=== PATIENT | female | born 1950 | race Caucasian/White ===

== ENCOUNTER 2018-12-02 09:44 | Emergency (ER) | payer MEDICARE, OTHER ==
[~2018-12-02] VITALS: Ht 175.3 cm; Wt 72.0 kg
[~2018-12-02 09:44] MED LIST: ASPI-817 PO; CARV25TA79 PO; CHLO25TA2 PO; CLOP75TA27 PO; FURO-110 PO; GLIP5TAB13 PO; HYDR-3670 PO; LISI-471 PO; METO-448 PO; PANT40TA3 PO; ROSU20TA PO; WARF2.5T PO; WARF2TAB PO
[2018-12-02 09:51] VITALS: BP 98/53; PULSE 66; RESP 20; Ht 175.3 cm; Wt 72.0 kg
--- NOTE | 2018-12-02 11:48 | ERD ---
ER Documentation Chief Complaint Chief Complaint Complains of a cough x 3 days HPI 68-year-old female, with history of hypertension and coronary artery disease, currently on Coumadin, presents the emergency department, complaining of productive cough for 3 days, associated with subjective fever chest congestion and general malaise. The patient denies chest pain, no shortness of breath, no palpitations, no leg edema. ROS All systems reviewed and are negative except as per history of present illness. Medications Home Meds Active Scripts Hydrocodone/Acetaminophen ([place] 5-325 Tablet) 1 Each Tablet, 1 TAB PO QHS PRN for PAIN, #7 TAB Prov:KAYA YUEN MD 12/02/18 Inhaler, Assist Devices (Compact Space Chamber Plus) 1 Each Spacer, EACH MC Q4H WHILE AWAKE PRN for COUGH, #1 Prov:KAYA YUEN MD 12/02/18 Albuterol Sulfate* (Proair HFA*) 8.5 Gm Hfa.aer.ad, 2 PUFF INH Q4 PRN for COUGH, #1 INHALER Prov:KAYA YUEN MD 12/02/18 Amoxicillin* (Amoxicillin*) 500 Mg Cap, 500 MG PO TID for 7 Days, CAP Prov:KAYA YUEN MD 12/02/18 Pantoprazole* (Protonix*) 40 Mg Tablet.dr, 40 MG PO DAILY for 30 Days, #20 TAB Prov:JARVIS DUMAS 07/28/16 Metoprolol Tartrate* (Lopressor*) 25 Mg Tab, 12.5 MG PO BID for 30 Days, TAB Prov:JARVIS DUMAS 07/28/16 Hydralazine Hcl* (Hydralazine Hcl*) 10 Mg Tablet, 10 MG PO Q8 for 30 Days, TAB Prov:JARVIS DUMAS 07/28/16 Reported Medications Glipizide* (Glipizide*) 5 Mg Tablet, 5 MG PO BID, TAB 07/26/16 Warfarin Sodium* (Coumadin*) 2.5 Mg Tablet, 2.5 MG PO SUN TUE UR SAT, TAB 07/26/16 Warfarin Sodium* (Coumadin*) 2 Mg Tablet, 2 MG PO MONWEDFRI, TAB 07/26/16 Furosemide* (Lasix*) 20 Mg Tablet, 20 MG PO BID, TAB 07/26/16 Rosuvastatin Calcium* (Crestor*) 20 Mg Tablet, 20 MG PO QHS, #30 TAB 07/26/16 Chlorthalidone* (Chlorthalidone*) 25 Mg Tablet, 25 MG PO DAILY, TAB 07/26/16 Pantoprazole* (Protonix*) 40 Mg Tablet.dr, 40 MG PO DAILY, TAB 07/26/16 Carvedilol* (Carvedilol*) 25 Mg Tablet, 25 MG PO BID, #60 TAB 07/26/16 Lisinopril* (Lisinopril*) 20 Mg Tablet, 20 MG PO DAILY, TAB 01/13/15 Clopidogrel Bisulfate (Clopidogrel) 75 Mg Tablet, 75 MG PO DAILY, TAB 01/13/15 Aspirin* (Aspirin* EC) 81 Mg Tablet.dr, 81 MG PO DAILY, TAB 01/13/15 Allergies Allergies: Coded Allergies: No Known Drug Allergies (Verified Allergy, Mild, 07/26/16) PMhx/Soc History of Surgery: Yes (cataract surgery) Anesthesia Reaction: No Hx Neurological Disorder: No Hx Respiratory Disorders: No Hx Cardiac Disorders: Yes (stent placement, DVT) Hx Psychiatric Problems: No Hx Miscellaneous Medical Probl: No Hx Alcohol Use: No Hx Substance Use: No Hx Tobacco Use: Yes Smoking Status: Never smoker FmHx Family History: No diabetes, No coronary disease Physical Exam Vitals Vital Signs Date Temp Pulse Resp B/P (MAP) Pulse Ox O2 O2 Flow FiO2 Time Delivery Rate 12/02/18 99.1 66 20 98/53 (68) 98 09:51 Physical Exam Const: No acute distress Head: Atraumatic Eyes: Normal Conjunctiva ENT: Normal External Ears, Nose and Mouth. Neck: Full range of motion. No meningismus. Resp: Rhonchi to auscultation bilaterally Cardio: Regular rate and rhythm, no murmurs Abd: Soft, non tender, non distended. Normal bowel sounds Skin: No petechiae or rashes Back: No midline or flank tenderness Ext: No cyanosis, or edema Neur: Awake and alert Psych: Normal Mood and Affect Procedures/MDM Differential diagnosis include but not limited to: Respiratory infection bacterial/viral/fungal. Asthma, pneumonitis, allergies, GERD. Less likely foreign body aspiration, cardiac related, aspiration pneumonia, malignancy. Physical examination and clinical presentation consistent most likely with viral syndrome. During the ED course the patient remained stable, no new complaints. Clinical impression discussed with the patient who agrees with management. The patient is stable to be treated outpatient and will be discharged home. Antibiotics not indicated at this time. The patient is requesting a prescription for antibiotics, a prescription will be given with instructions to continue symptomatic and conservative management for 3 days, trying to avoid use of unnecessary antibiotics due to the possible side effects and complications. if there is no improvement of the symptoms in 72 hours, okay to start antibiotics. some side effects of prescribed medications (headache, rash, nausea, vomiting, diarrhea, drowsiness, hypertension, interactions with other medications) were reviewed. The patient was instructed to follow up with the primary care provider in the next 48h. If symptoms persist, worsen or new symptoms develop, then patient should return to the ED immediately. Disclaimer: Inadvertent spelling and grammatical errors are likely due to EHR/dictation software use and do not reflect on the overall quality of patient care. Also, please note that the electronic time recorded on this note does not necessarily reflect the actual time of the patient encounter. Departure Diagnosis: Primary Impression: Cough Additional Impression: Bronchitis Condition: Stable Additional Instructions: Thank you very much for allowing us to participate in your care. Your health and safety is our top priority at [facility]. Call your primary care doctor TOMORROW for an appointment during the next 2-4 days and bring all the information and medications prescribed. Have prescriptions filled and follow precisely the directions on the label. If the symptoms get worse and your provider is unavailable, return to the Emergency Department immediately. KAYA YUEN MD Dec 02, 2018 11:48
[2018-12-02] MEDS ORDERED: AMOX500C2 PO (12:02)
[2018-12-02] MEDS ORDERED: INHA1SPA95 MC (12:02)
[2018-12-02] MEDS ORDERED: ALBU8.5H8 INH (12:02)
[2018-12-02] MEDS ORDERED: HYDR-4011 PO (12:02)
== END 2018-12-02 12:33 | disposition home or self-care (01) ==
LOC: FTE 09:44
DX: J40 Bronchitis, not specified as acute or chronic (principal); I10 Essential (primary) hypertension; I25.10 Atherosclerotic heart disease of native coronary artery without angina pectoris; Z79.82 Long term (current) use of aspirin; Z79.01 Long term (current) use of anticoagulants; Z98.61 Coronary angioplasty status; Z79.84 Long term (current) use of oral hypoglycemic drugs; Z87.891 Personal history of nicotine dependence
CPT/HCPCS: 99283

== ENCOUNTER 2019-05-10 17:59 | Emergency (ER) | payer MEDICARE, OTHER ==
[~2019-05-10] VITALS: Ht 160 cm; Wt 72.9 kg
[~2019-05-10 17:59] MED LIST changes: +ALBU8.5H8 INH; +AMOX500C2 PO; +CRES20 PO; +HYDR-4011 PO; +INHA1SPA95 MC; -ROSU20TA PO
[2019-05-10 18:03] VITALS: Ht 160 cm; Wt 72.9 kg
[2019-05-10 20:46] VITALS: BP 130/59; PULSE 56; RESP 17
--- NOTE | 2019-05-11 04:38 | ERD ---
ER Documentation Chief Complaint Chief Complaint right leg bruise s/p fall this morning, right leg pain x 3 months HPI This is a very pleasant 68-year-old female who is brought in by son with complaints of right calf swelling and bruising status post mechanical slip and fall while in the shower this morning. She is complaining of pain to her right calf as well as her anterior right lower leg. She is able to walk but has pain after few steps. No lower extremity numbness or tingling. No shortness of breath or chest pain. Patient has history of DVTs and is worried about a blood clot. She is currently on aspirin and other blood thinning medications. Of note, son states that patient has been having right hip pain for the past 3 months. He states symptoms occurred after carrying heavy bag of laundry. There is no direct fall or injury. He is requesting x-rays of her right hip. She is able to remain ambulatory without a limp. ROS All systems reviewed and are negative except as per history of present illness. Medications Home Meds Active Scripts Hydrocodone/Acetaminophen ([place] 5-325 Tablet) 1 Each Tablet, 1 TAB PO QHS PRN for PAIN, #7 TAB Prov:KAYA YUEN MD 12/02/18 Inhaler, Assist Devices (Compact Space Chamber Plus) 1 Each Spacer, EACH MC Q4H WHILE AWAKE PRN for COUGH, #1 Prov:KAYA YUEN MD 12/02/18 Albuterol Sulfate* (Proair HFA*) 8.5 Gm Hfa.aer.ad, 2 PUFF INH Q4 PRN for COUGH, #1 INHALER Prov:KAYA YUEN MD 12/02/18 Amoxicillin* (Amoxicillin*) 500 Mg Cap, 500 MG PO TID for 7 Days, CAP Prov:KAYA YUEN MD 12/02/18 Pantoprazole* (Protonix*) 40 Mg Tablet.dr, 40 MG PO DAILY for 30 Days, #20 TAB Prov:JARVIS DUMAS 07/28/16 Metoprolol Tartrate* (Lopressor*) 25 Mg Tab, 12.5 MG PO BID for 30 Days, TAB Prov:JARVIS DUMAS 07/28/16 Hydralazine Hcl* (Hydralazine Hcl*) 10 Mg Tablet, 10 MG PO Q8 for 30 Days, TAB Prov:JARVIS DUMAS 07/28/16 Reported Medications Glipizide* (Glipizide*) 5 Mg Tablet, 5 MG PO BID, TAB 07/26/16 Warfarin Sodium* (Coumadin*) 2.5 Mg Tablet, 2.5 MG PO SUN TUE THUR SAT, TAB 07/26/16 Warfarin Sodium* (Coumadin*) 2 Mg Tablet, 2 MG PO MONWEDFRI, TAB 07/26/16 Furosemide* (Lasix*) 20 Mg Tablet, 20 MG PO BID, TAB 07/26/16 Rosuvastatin Calcium* (Crestor*) 20 Mg Tablet, 20 MG PO QHS, #30 TAB 07/26/16 Chlorthalidone* (Chlorthalidone*) 25 Mg Tablet, 25 MG PO DAILY, TAB 07/26/16 Pantoprazole* (Protonix*) 40 Mg Tablet.dr, 40 MG PO DAILY, TAB 07/26/16 Carvedilol* (Carvedilol*) 25 Mg Tablet, 25 MG PO BID, #60 TAB 07/26/16 Lisinopril* (Lisinopril*) 20 Mg Tablet, 20 MG PO DAILY, TAB 01/13/15 Clopidogrel Bisulfate (Clopidogrel) 75 Mg Tablet, 75 MG PO DAILY, TAB 01/13/15 Aspirin* (Aspirin* EC) 81 Mg Tablet.dr, 81 MG PO DAILY, TAB 01/13/15 Allergies Allergies: Coded Allergies: No Known Drug Allergies (Verified Allergy, Mild, 07/26/16) PMhx/Soc History of Surgery: Yes (cataract surgery) Anesthesia Reaction: No Hx Neurological Disorder: No Hx Respiratory Disorders: No Hx Cardiac Disorders: Yes (stent placement, DVT) Hx Psychiatric Problems: No Hx Miscellaneous Medical Probl: No Hx Alcohol Use: No Hx Substance Use: No Hx Tobacco Use: Yes Smoking Status: Current every day smoker Physical Exam Vitals Vital Signs Date Temp Pulse Resp B/P (MAP) Pulse Ox O2 O2 Flow FiO2 Time Delivery Rate 05/10/19 98.0 56 17 130/59 98 Room Air 20:46 (82) 05/10/19 98.9 80 18 130/58 96 18:03 (82) Physical Exam Const: No acute distress Head: Atraumatic Eyes: Normal Conjunctiva ENT: Normal External Ears, Nose and Mouth. Skin: No petechiae or rashes Back: No midline or flank tenderness Ext: + Approximately 3 x 4 cm hematoma to the right medial calf with right calf swelling. Mild tenderness palpation to the midshaft right tibia. Distal pulses intact. DP/PT pulses 2+. Full range of motion of the ankle and lower leg. Sensation grossly intact. Neur: Awake and alert Psych: Normal Mood and Affect Procedures/MDM LABS & DIAGNOSTIC IMAGING: PROCEDURE: US Lower extremity Venous. CLINICAL INDICATION: Right lower extremity pain TECHNIQUE: Multiple sonographic images of the right lower extremity deep v enous system were obtained utilizing grayscale, color-flow, compressive sonography and doppler imaging with augmentation. The images were reviewed on a PACS workstation. COMPARISON: None. FINDINGS: There is normal compressibility and flow within the right common femoral, deep femoral, superficial femoral and popliteal veins. The deep veins of the calf were incompletely visualized. IMPRESSION: No sonographic evidence for deep venous thrombosis in the right lower extremity. PROCEDURE: Right leg series CLINICAL INDICATION: Pain and bruising status post fall TECHNIQUE: AP and lateral right leg series COMPARISON: None available FINDINGS: No acute fractures or dislocations are present. Normal mineralization and joint spaces are maintained. The imaged portions of the right knee and ankle are normal. No radiodense foreign bodies are present. An Achilles tendon insertion calcaneal spur is present . IMPRESSION: 1. No acute fractures or dislocations 2. Calcaneal spur is noted PROCEDURE: Right hip x-ray CLINICAL INDICATION: Pain and bruising status post fall TECHNIQUE: AP right hip COMPARISON: Right leg series 05/10/2019 FINDINGS: No acute fractures or dislocations on this single limited AP view of the right hip the imaged portions of the right sacroiliac joint sacrum and iliac wing are normal. IMPRESSION: 1. No acute fractures or dislocation MEDICAL DECISION MAKING: This is a 68-year-old female with history of blood clots who presents with right calf bruising and pain status post mechanical slip and fall. Ultrasound and x- rays were both unremarkable. She has no evidence of DVT or long bone fracture. I offered pain medications but patient refused. Patient has no evidence of compartment syndrome, neurovascular injury, open fracture or tendon laceration. I recommended ice and extremity elevation for the next 48 hours. She was told to follow-up with the regular doctor sometime next week. Strict return precautions were discussed. PRESCRIPTIONS: None SPECIALIST FOLLOW UP RECOMMENDED: None Patient has been advised to follow up with primary care in 1-2 days. Departure Diagnosis: Primary Impression: Contusion of calf Encounter type: initial encounter Laterality: right Qualified Codes: S80.11XA - Contusion of right lower leg, initial encounter Additional Impressions: Right hip pain Fall Encounter type: initial encounter Qualified Codes: W19.XXXA - Unspecified fall, initial encounter Condition: Stable Patient Instructions: Contusion, Lower Extremity Referrals: [facility] YOU HAVE RECEIVED A MEDICAL SCREENING EXAM AND THE RESULTS INDICATE THAT YOU DO NOT HAVE A CONDITION THAT REQUIRES URGENT TREATMENT IN THE EMERGENCY DEPARTMENT. FURTHER EVALUATION AND TREATMENT OF YOUR CONDITION CAN WAIT UNTIL YOU ARE SEEN IN YOUR DOCTORS OFFICE WITHIN THE NEXT 1-2 DAYS. IT IS YOUR RESPONSIBILITY TO MAKE AN APPOINTMENT FOR FOLOW-UP CARE. IF YOU HAVE A PRIMARY DOCTOR --you should call your primary doctor and schedule an appointment IF YOU DO NOT HAVE A PRIMARY DOCTOR YOU CAN CALL OUR PHYSICIAN REFERRAL HOTLINE AT IF YOU CAN NOT AFFORD TO SEE A PHYSICIAN YOU CAN CHOSE FROM THE FOLLOWING [facility] [address] [facility]. [facility] [address] [facility] [facility] [address] [facility] [facility] [address] [facility]. [facility] [address] [facility]. [facility] [address] [facility]. [facility] YOU HAVE RECEIVED A MEDICAL SCREENING EXAM AND THE RESULTS INDICATE THAT YOU DO NOT HAVE A CONDITION THAT REQUIRES URGENT TREATMENT IN THE EMERGENCY DEPARTMENT. FURTHER EVALUATION AND TREATMENT OF YOUR CONDITION CAN WAIT UNTIL YOU ARE SEEN IN YOUR DOCTORS OFFICE WITHIN THE NEXT 1-2 DAYS. IT IS YOUR RESPONSIBILITY TO MAKE AN APPOINTMENT FOR FOLOW-UP CARE. IF YOU HAVE A PRIMARY DOCTOR --you should call your primary doctor and schedule and appointment IF YOU DO NOT HAVE A PRIMARY DOCTOR YOU CAN CALL OUR PHYSICIAN REFERRAL HOTLINE AT . IF YOU CAN NOT AFFORD TO SEE A PHYSICIAN YOU CAN CHOSE FROM THE FOLLOWING [facility]: [facility] [address] [place] [address] [facility] [address] [place] [address] [facility] [address] [place] [address] Additional Instructions: Keep your leg elevated for the next 48 hours, you can also apply ice. Your bru ise will likely resolve on its own in the next few weeks. Take copies of your reports to your primary care appointment next week. Return here for any new or worsening symptoms. Comments patient evaluated with PA, agree with assessment and plan LORRI Lan PA-C May 11, 2019 04:38 ATIF ROGERS DO May 14, 2019 12:02
== END 2019-05-10 20:46 | disposition home or self-care (01) ==
LOC: FTE 17:59
DX: S80.11XA Contusion of right lower leg, initial encounter (principal); M25.551 Pain in right hip; F17.210 Nicotine dependence, cigarettes, uncomplicated; W18.39XA Other fall on same level, initial encounter; Y92.9 Unspecified place or not applicable; Z79.01 Long term (current) use of anticoagulants; Z79.02 Long term (current) use of antithrombotics/antiplatelets; Z79.82 Long term (current) use of aspirin
CPT/HCPCS: 73500; 73501; 73590; 93971